=== PATIENT | female | born 1980 | race Caucasian/White ===

== ENCOUNTER 2022-10-31 21:47 | Emergency (ER) | payer MEDICAID ==
[~2022-10-31] VITALS: Ht 157.5 cm; Wt 70.0 kg
[2022-10-31 22:19] VITALS: BP 127/82; PULSE 77; RESP 16; TEMP 98.3; O2SAT 100
[2022-10-31] MEDS ORDERED: ACETAMINOPHEN 325MG TABLET PO STA (23:08)
[2022-11-01] MEDS ORDERED: NAPR-681 PO (05:48)
== END 2022-11-01 06:05 | disposition home or self-care (01) ==
LOC: ER 21:47
DX: S00.83XA Contusion of other part of head, initial encounter (principal); R68.84 Jaw pain; I10 Essential (primary) hypertension; Y08.89XA Assault by other specified means, initial encounter; Y93.89 Activity, other specified; Y92.89 Other specified places as the place of occurrence of the external cause; Y99.8 Other external cause status
CPT/HCPCS: 70486; 99284

== ENCOUNTER 2023-01-04 03:07 | Emergency (ER) | payer MEDICAID ==
[~2023-01-04] VITALS: Ht 160 cm; Wt 66.0 kg
[~2023-01-04 03:07] MED LIST: NAPR-681 PO
[2023-01-04 03:42] VITALS: O2SAT 100
[2023-01-04] MEDS ORDERED: AMOX1TAB16 MT (09:06)
[2023-01-04] MEDS ORDERED: GUAI5LIQ13 PO (09:06)
[2023-01-04 10:09] VITALS: BP 132/68; PULSE 78; RESP 18; TEMP 98.3
== END 2023-01-04 10:13 | disposition home or self-care (01) ==
LOC: ER 03:07
DX: J32.9 Chronic sinusitis, unspecified (principal); I10 Essential (primary) hypertension; E78.00 Pure hypercholesterolemia, unspecified
CPT/HCPCS: 99284; 71045; 87426; C9803